=== PATIENT | male | born 1985 | race Caucasian/White ===

== ENCOUNTER 2022-02-20 14:50 | Inpatient (IN) | payer MEDICAID, SELFPAY ==
[2022-02-20 14:51] VITALS: BP 133/89; PULSE 87; RESP 14; TEMP 37.2; O2SAT 100; BMI 22.1
--- NOTE | 2022-02-20 15:06 | CM.ED ---
SW received call from patient's mother inquiring about the RAMP program. SW provided mother with information about the RAMP program. SW Note SW met with patient and his father in law. Patient gave verbal consent to speak to him in the presence of the his father in law. Patient reprots he is almost through with my alcohol detox as his last drink 2 days ago. Patient reported he drank almost 2 L of vodka and 1 can of beer the last time I drank. Patient said that he doesn't have any of the symptoms of Suboxone detox. Patient said that he last used Suboxone yesterday and when magazine writer asked if he had been prescribed detox patient said it was. SW asked if patient had bought the Suboxone and patient said the last few off the street. SW explained RAMP program including rules that include no outside visitors, no outside food, no phone calls and belongings locked. Patient verbalized understanding. RN said that patient need excuse for upcoming court hearing. SW advised RN to give a work excuse stating he was seen at [facility] but his discharge date is undetermined. Lisa ROSADO
--- NOTE | 2022-02-20 15:10 | EDS_ITS ---
HPI History of Present Illness Chief Complaint: ETOH Intox Informant: patient Onset/Context/Timing Onset: Yesterday Context: Gradual Onset Timing: Continuous Worsened by: Nothing Relieved by: Nothing Associated Symptoms Associated Symptoms: Negative for vomiting*, diarrhea*, fever*, rash*, seizure, tremor, palpatations, change in mental status, trauma, suicidal ideation or homicidal ideation Narrative Narrative: Patient presents requesting detox from Suboxone and alcohol. Patient states he drinks a liter of vodka per day. Patient states his last drink was 2 days ago. Patient states that he takes 1-1/2 to 2 tablets of Suboxone daily. Patient states his last dose of Suboxone was yesterday. Patient states he has been using for 6 years. Patient denies any prior detox. Patient denies any suicidal homicidal ideations. Patient denies any nausea or vomiting. Patient admits to some subjective chills. PFSH PFSH Medical History no medical history no medical history Allergy/AdvReac Type Severity Reaction Status Date / Time No Known Allergies Allergy Verified 02/20/22 14:51 Surgical History no surgical history no surgical history Social History (Updated 02/20/22 @ 15:[address] Vince Morris, DO) Smoking Status: Current every day smoker tobacco type: cigarettes alcohol intake: current alcohol intake frequency: 3 or more drinks per day Alcohol type: hard liquor substance use type: other details: Suboxone ROS ROS ED Constitutional Constitutional ED: Reports chills and subjective; Denies fever(s) Eyes Eyes: Denies blurry vision or change in vision ENT ENT ED: Denies rhinorrhea or sore throat Cardiovascular Cardiovascular: Denies chest pain or palpitations Respiratory/Chest Respiratory/Chest: Denies cough or dyspnea Gastrointestinal Gastrointestinal: Denies nausea or vomiting Genitourinary Genitourinary ED: Denies dysuria or hematuria Musculoskeletal Musculoskeletal: Reports back pain; Denies neck pain Integumentary Denies abscess or rash Neurologic Neurologic: Denies headache(s) or weakness Psychiatric Psychiatric: Denies suicidal ideation or suicidal thoughts Allergic/Immunologic Allergic/Immunologic ED: Denies mouth swelling or urticaria EXAM Physical Exam Const Vital Signs: 02/20/22 14:51 Temperature 99 F Temperature Source Temporal Pulse Rate 87 Respiratory Rate 14 Blood Pressure 133/89 H Blood Pressure Mean 103 Pulse Ox 100 Oxygen Delivery Method Room Air Positive well nourished and well developed General Appearance ED: well developed and NAD HEENT Reports moist mucous membranes Neck supple and no JVD Resp normal respiratory effort and clear to auscultation bilaterally Cardio regular rate, regular rhythm and no murmurs GI normal to inspection, nondistended, normoactive bowel sounds and non-tender Palpation: soft Extremity normal to inspection General Extremety ED: Negative for edema or tenderness General Extremity: Negative for edema Neuro oriented x3, CN's II-XII intact bilaterally and no sensory deficits noted Sensorium / Orientation: alert Motor Exam: strength 5/5 throughout Psych mental status grossly normal Skin no rashes or lesions noted MDM MDM MDM Narrative Medical decision making narrative: Basic labs were obtained. Case was discussed with the hospitalist. He will admit the patient to his service. Patient understood and was agreeable with the plan. All questions were answered. Lab Data Labs: Laboratory Results - last 24 hr 02/20/22 02/20/22 15:30 15:30 WBC 7.3 RBC 3.83 L Hgb 13.7 Hct 40.8 MCV 106.5 H MCH 35.8 H MCHC 33.6 RDW Std Deviation 63.4 H RDW Coeff of Sherry 15.9 H Plt Count 192 MPV 10.9 Immature Gran % (Auto) 0.500 Neut % (Auto) 70.3 H Lymph % (Auto) 14.7 L [place] % (Auto) 11.1 H Eos % (Auto) 2.7 Baso % (Auto) 0.7 Absolute Neuts (auto) 5.2 Absolute Lymphs (auto) 1.08 Nucleated RBC % 0 Ur Drug Screen Comment Discharge Plan Triage Chief Complaint: ETOH Intox ED Provider: Vince Morris Dx/Rx/DC Orders Clinical Impression: Opiate withdrawal, Alcohol withdrawal, Substance abuse Primary Care Provider: Care Physician,No Primary Referrals: Care Physician,No Primary [Primary Care Provider] - Disposition Disposition: Acute Care [facility]
--- NOTE | 2022-02-20 15:36 | NURSING ---
pt refused IV placement stating I don't need saline or nothing like that This nurse attempted to educate pt on use of IV need for inpatient use. pt refused. pt allowed straight stick for blood work collection. updated.
[2022-02-20 15:43] LABS: Absolute Lymphocyte Count 1.08 X10^3/uL (0.83-4.51); Absolute Neutrophil Count 5.2 X10^3/uL (2.0-7.7); Basophil# 0.05 X10^3/uL; Basophil% 0.7 % (0-1); Eosinophils% 2.7 % (0-5); Hematocrit 40.8 % (40-54); Hemoglobin 13.7 g/dL (13.0-16.5); Lymphocyte # 1.08 X10^3/ul (0.83-4.51); Lymphocyte % 14.7 % (19-41); Mean Corp Hgb Conc 33.6 g/dL (32-36); Mean Corpuscular Hgb 35.8 pg (27.0-32.0); Mean Corpuscular Volume 106.5 fL (80-94); Mean Platelet Vol. 10.9 fl (6.2-12.0); Monocyte# 0.81 X10^3/uL; Monocyte% 11.1 % (0-10); NRBC Flagged by Analyzer 0 % (0-5); Neutrophil # 5.15 X10^3/uL (2.7-7.7); Neutrophil % 70.3 % (47-70); Platelet Count 192 K/mm3 (150-450); RBC Distribution Width CV 15.9 % (11.6-14.6); RBC Distribution Width SD 63.4 fl (35.1-43.9); Red Blood Count 3.83 M/mm3 (4.6-6.2); White Blood Count 7.3 K/mm3 (4.4-11.0)
--- NOTE | 2022-02-20 16:00 | NURSING ---
MED SURG JOARASH ALCOHOL AND OPIATE WITHDRAWAL
[2022-02-20 16:02] LABS: ALB/GLOB Ratio 0.7 RATIO (0.9-2.4); AST(SGOT) 196 U/L (15-37); Alanine Aminotransfer ALT/SGPT 88 U/L (16-61); Albumin, Serum 3.5 g/dL (3.2-5.0); Alkaline Phosphatase 189 U/L (45-117); Anion Gap 8 (5-15); BUN 11 mg/dL (7-18); BUN/Creat Ratio 15.4 RATIO (10-20); Calcium,Total 9.6 mg/dL (8.5-10.1); Chloride 99 mmol/L (98-107); Creatinine, Serum 0.72 mg/dL (0.70-1.30); EST Glomerular Filtration Rate 131 mL/min (>60); Est Glom Filt Rate - Afr Amer 159 mL/min (>60); Estimated Creatinine Clearance 136.42 ml/min; Globulin 5.2 g/dL (2.2-4.2); Glucose 90 mg/dL (74-106); Potassium 3.9 mmol/L (3.5-5.1); Protein, Total 8.7 g/dL (6.4-8.2); Sodium Level 134 mmol/L (136-145)
[2022-02-20 16:06] LABS: Amphetamine Urine VISTA NEGATIVE (<1000 ng/mL); Barbiturate Urine VISTA NEGATIVE (< 200 ng/mL); Benzodiazepine Urine VISTA NEGATIVE (< 200 ng/mL); Cocaine Urine VISTA NEGATIVE (< 300 ng/mL); Ecstacy Urine VISTA NEGATIVE (< 500 ng/mL); Methadone Urine VISTA NEGATIVE (< 300 ng/mL); PCP Urine VISTA NEGATIVE (< 25 ng/mL); THC Urine VISTA NEGATIVE (< 50 ng/mL); Vista UDS pH Range 6
--- NOTE | 2022-02-20 16:22 | PCM.HP.STD ---
HPI - General General Date of Service: 02/20/22 Chief Complaint: Opiate and alcohol withdrawal HPI Narrative TOÑO LORD, is a 36 M who presents seeking treatment for opiate and alcohol withdrawal. Patient drinks 2 bottles of vodka per day. Last drink was about 2 days ago. Patient has a slight tremor but he states that he normally has a slight tremor. Denies any other acute symptoms at this time. He also uses Suboxone from the street and has been taking 1 twice a day for a while and now is down to about a quarter tab every other day. Last consumption was yesterday. Is currently having no symptoms from opiate withdrawal at this time. Patient is interested in getting therapy and treatment for his withdrawal, however, he does not want to take phenobarbital or buprenorphine at this time [facility] Medical History Alcoholism Substance abuse Medical History no medical history Allergy/AdvReac Type Severity Reaction Status Date / Time No Known Allergies Allergy Verified 02/20/22 14:51 Family History Other Alcoholism Surgical History no surgical history Social History Smoking Status: Current every day smoker tobacco type: cigarettes alcohol intake: current alcohol intake frequency: 3 or more drinks per day Alcohol type: hard liquor substance use type: other details: Suboxone ROS ROS Narrative All review of systems were negative except as mentioned above in the history of present illness and the other review of systems. Vital Signs Vital Signs Vital Signs: 02/20/22 14:51 Temperature 37.2 C Temperature Source Temporal Pulse Rate 87 Respiratory Rate 14 Blood Pressure 133/89 H Blood Pressure Mean 103 Pulse Ox 100 Oxygen Delivery Method Room Air Weight Weight: 68 kg Body Mass Index (BMI) 22.1 Physical Exam Const alert and no apparent distress HEENT normocephalic, head/scalp atraumatic, hearing grossly normal bilaterally and moist oral mucous membranes Resp normal respiratory effort, no retractions, no use of accessory muscles and clear to auscultation bilaterally Cardio regular rate, regular rhythm, S1 normal heart sound and S2 normal heart sound GI normal to inspection, nondistended, normoactive bowel sounds, soft to palpation, non-tender, non-distended and hepatosplenomegaly Extremity normal to inspection Neuro oriented x3 Results Lab / Micro Data Result Diagrams: 02/20/22 15:30 02/20/22 15:30 Labs: Laboratory Results - last 24 hr 02/20/22 15:30: WBC 7.3, RBC 3.83 L, Hgb 13.7, Hct 40.8, MCV 106.5 H, MCH 35.8 H, MCHC 33.6, RDW Std Deviation 63.4 H, RDW Coeff of Sherry 15.9 H, Plt Count 192, MPV 10.9, Immature Gran % (Auto) 0.500, Neut % (Auto) 70.3 H, Lymph % (Auto) 14.7 L, [place] % (Auto) 11.1 H, Eos % (Auto) 2.7, Baso % (Auto) 0.7, Absolute Neuts (auto) 5.2, Absolute Lymphs (auto) 1.08, Nucleated RBC % 0 02/20/22 15:30: Sodium 134 L, Potassium 3.9, Chloride 99, Carbon Dioxide 27.0, Anion Gap 8, BUN 11, Creatinine 0.72, Estim Creat Clear Calc 136.42, Est GFR (MDRD) Af Amer 159, Est GFR (MDRD) Non-Af 131, BUN/Creatinine Ratio 15.4, Glucose 90, Calcium 9.6, Total Bilirubin 0.60, AST 196 H, ALT 88 H, Alkaline Phosphatase 189 H, Total Protein 8.7 H, Albumin 3.5, Globulin 5.2 H, Albumin/Globulin Ratio 0.7 L 02/20/22 15:30: Ethyl Alcohol 7.0 02/20/22 15:30: Urine Opiates Screen NEGATIVE, Urine Methadone Screen NEGATIVE, Ur Barbiturates Screen NEGATIVE, Ur Phencyclidine Scrn NEGATIVE, Ur Amphetamines Screen NEGATIVE, MDMA (Ecstasy) Screen NEGATIVE, U Benzodiazepines Scrn NEGATIVE, Urine Cocaine Screen NEGATIVE, U Cannabinoids Screen NEGATIVE, Ur Drug Screen Comment Assessment & Plan Assessment/Plan (1) Opiate withdrawal: PLAN: Last use of Suboxone was 2 days ago. Patient was using quarter tabs. Patient declining any buprenorphine at this time. Patient be treated for somatic complaints at this time and to have addiction medicine see him to establish a program for discharge. Patient may alert us to his need for medication if his symptoms do get worse but he does not want to have any treatment at this time. (2) Alcohol withdrawal: PLAN: Patient last drink was about 2 days ago and currently he is stable. He does not want to be placed on a phenobarbital taper at this time. Supportive management. Addiction medicine to see in to facilitate outpatient program. PLAN: Plan VTE prophylaxis: Not indicated as patient is low risk. Charges/Coding Visit Charges Inpatient E&M: 73926 Init Hosp L2
[2022-02-20 16:51] VITALS: BMI 21.4
[2022-02-20 16:58] VITALS: BP 140/76; PULSE 86; RESP 18; TEMP 36.7; O2SAT 97
[2022-02-20 17:04] LABS: Mucous, Urine 0 SEEN /hpf (<or=2+); Squamous Epithelial Cells - UA 0 SEEN /hpf (0-5)
[2022-02-20 17:08] LABS: Color, Urine Yellow (Yellow); Glucose, Dipstick Normal (Normal); Ketone-Dipstick 5 mg/dl (Negative); Leukocyte Esterase-Dipstick 25 /ul (Negative); Nitrite-Dipstick Negative (Negative); Occult Blood-Urine Negative /ul (Negative); Protein-Dipstick 15 mg/dl (Negative); Specific Gravity, Urine 1.015 (1.002-1.030); Urine Bilirubin Dipstick Negative (Negative); Urine Clarity Clear (Clear); Urine Urobilinogen 1 mg/dl (Normal)
[2022-02-20 17:17] LABS: Bacteria RARE /hpf (None Seen); Red Blood Cells-Urine 0 SEEN /hpf (0-5); White Blood Cells 0-5 SEEN /hpf (0-5)
[2022-02-20 17:35] VITALS: BP 125/79; PULSE 99; RESP 18; TEMP 36.8; O2SAT 99
--- NOTE | 2022-02-20 20:20 | PCM.HOSP.N ---
Hospitalist Note Patient refusing Subutex and phenobarbital as patient states that he wants to withdrawal naturally. Explained the risks of withdrawing from alcohol without proper medication including seizures. Patient verbalized understanding states that he will continue to refuse medications and is also refusing an IV line. Educated patient that if patient does start to experience seizure activity due to alcohol withdrawal that his treatment with Ativan may be delayed since he is refusing an IV line as well. Patient verbalized understanding and states he does not want anything done at this time just nicotine gum for his tobacco withdrawal.
[2022-02-20] MEDS: Nicotine Polacrilex 2 MG GUM PO ×2 (20:30→23:42)
[2022-02-20 21:43] VITALS: BP 126/83; PULSE 88; RESP 18; TEMP 36.8; O2SAT 99
[2022-02-20] MEDS: traZODone 100 MG Tablet PO (23:42)
[2022-02-21 07:04] VITALS: BP 107/75; PULSE 70; RESP 16; TEMP 36.5; O2SAT 98
[2022-02-21 08:32] VITALS: BP 105/71; PULSE 66; RESP 18; TEMP 36.8; O2SAT 99
[2022-02-21] MEDS: Nicotine Polacrilex 2 MG GUM PO ×4 (08:40→22:28)
--- NOTE | 2022-02-21 10:14 | PN.HOSP_ITS ---
Subjective Subjective Doing well, denies any significant withdrawal symptoms. Still refusing medications Objective Data Objective Data Vital Signs: Vital Signs Temp Pulse Resp BP Pulse Ox O2 Del Method 98.2 F 66 18 105/71 99 Room Air 02/21/22 08:32 02/21/22 08:32 02/21/22 08:32 02/21/22 08:32 02/21/22 08:32 02/21/22 08:47 Oxygen Delivery Method Room Air Weight: 145 lb 6.4 oz Body Mass Index (BMI) 21.4 Intake & Output: Intake and Output for Last 24 Hours 02/20/22 02/21/22 02/22/22 03:59 03:59 03:59 Intake Total 800 / 800 Balance 800 / 800 Lab / Micro Data Result Diagrams: 02/20/22 15:30 02/20/22 15:30 Labs: Laboratory Results - last 24 hr 02/20/22 15:20: Urine Color Yellow, Urine Clarity Clear, Urine pH 7.0, Ur Specific [place] 1.015, Urine Protein 15 H, Urine Glucose (UA) Normal, Urine Ket ones 5 H, Urine Occult Blood Negative, Urine Nitrite Negative, Urine Bilirubin Negative, Urine Urobilinogen 1 H, Ur Leukocyte Esterase 25 H, Urine RBC 0 SEEN, Urine WBC 0-5 SEEN, Ur Squamous Epith Cells 0 SEEN, Urine Bacteria RARE, Urine Mucus 0 SEEN 02/20/22 15:30: WBC 7.3, RBC 3.83 L, Hgb 13.7, Hct 40.8, MCV 106.5 H, MCH 35.8 H , MCHC 33.6, RDW Std Deviation 63.4 H, RDW Coeff of Sherry 15.9 H, Plt Count 192, MPV 10.9, Immature Gran % (Auto) 0.500, Neut % (Auto) 70.3 H, Lymph % (Auto) 14.7 L, [place] % (Auto) 11.1 H, Eos % (Auto) 2.7, Baso % (Auto) 0.7, Absolute Neuts (auto) 5.2, Absolute Lymphs (auto) 1.08, Nucleated RBC % 0 02/20/22 15:30: Sodium 134 L, Potassium 3.9, Chloride 99, Carbon Dioxide 27.0, Anion Gap 8, BUN 11, Creatinine 0.72, Estim Creat Clear Calc 136.42, Est GFR (MDRD) Af Amer 159, Est GFR (MDRD) Non-Af 131, BUN/Creatinine Ratio 15.4, Glucose 90, Calcium 9.6, Total Bilirubin 0.60, AST 196 H, ALT 88 H, Alkaline Phosphatase 189 H, Total Protein 8.7 H, Albumin 3.5, Globulin 5.2 H, Albumin/Globulin Ratio 0.7 L 02/20/22 15:30: Ethyl Alcohol 7.0 02/20/22 15:30: Urine Opiates Screen NEGATIVE, Urine Methadone Screen NEGATIVE, Ur Barbiturates Screen NEGATIVE, Ur Phencyclidine Scrn NEGATIVE, Ur Amphetamines Screen NEGATIVE, MDMA (Ecstasy) Screen NEGATIVE, U Benzodiazepines Scrn NEGATI VE, Urine Cocaine Screen NEGATIVE, U Cannabinoids Screen NEGATIVE, Ur Drug Screen Comment Physical Exam Narrative General: Alert, Oriented x3, Cooperative, No apparent distress HEENT: Atraumatic, PERRLA, EOMI, Normocephalic Oral: Moist Mucosa Neck: Supple, No JVD Lungs: Clear to auscultation, Normal air movement, No rhonchi, No wheeze, No rales Cardiovascular: Regular rate, Regular Rhythm, Normal S1, Normal S2, No murmurs Abdomen: Soft, Non Tender, Non-Distended, No Hepato-splenomegaly Extremities: No edema, Capillary Refill Less than 3 Seconds Skin: No rashes, No breakdown Musculoskeletal: No Tenderness to Palpation of Joints or Extremities Neurological: Cranial nerves II-XII grossly intact, Motor Exam 5/5 strength throughout, Sensory exam intact to light touch and pain Psych/Mental Status: Normal Affect, Appropriate Assessment & Plan Assessment/Plan (1) Opiate withdrawal: (2) Alcohol withdrawal: PLAN: Plan 1. Acute opiate and alcohol withdrawal ? He is refusing the medications and the alcohol and opiate withdrawal protocol as he wants to do this naturally ? We will have him follow-up with 180 when he is ready for discharge ? We will continue with symptomatic treatment but he does not want to bu prenorphine taper or a phenobarb taper DVT: Ambulation Charges/Coding Visit Charges Inpatient E&M: 78606 Subs Hosp L2
[2022-02-21 14:00] VITALS: BP 118/77; PULSE 68; RESP 18; TEMP 36.6; O2SAT 99
[2022-02-21 20:20] VITALS: BP 131/89; PULSE 74; RESP 18; TEMP 36.8; O2SAT 98
[2022-02-21] MEDS: traZODone 100 MG Tablet PO (23:45)
[2022-02-22] MEDS: Nicotine Polacrilex 2 MG GUM PO ×2 (09:16→12:01)
--- NOTE | 2022-02-22 10:26 | ADDICTION ---
This music writer met with PT to conduct ASAM, MSE, AUDIT assessments and to plan for d/c. PT A+Ox4 and participated actively. All assessments completed, faxed to [facility] and placed in PT's chart. PT plans to f/u with [facility] for residential treatment services. [facility] will provide transportation post d/c from [facility].
--- NOTE | 2022-02-22 10:54 | DCINST_ITS ---
Discharge Instructions Diet Discharge Diet: No restrictions Follow Up Care Test Results: Test results from this visit will be discussed in further detail at your follow- up appointment, if applicable. Discharge Plan Admission Admit Date/Time: 02/20/22 16:21 Attending Provider: Manuel Veloz Primary Care Provider: Care Physician,No Primary Consulting Providers: Vince Paulino Discharge Orders/Prescriptions Prescriptions: No Action NK Referrals / Follow Up: Care Physician,No Primary [Primary Care Provider] - Disposition Disposition (needs filled in before D/C Order can be placed): Home, Self Care
--- NOTE | 2022-02-22 10:55 | DS.PCM_ITS ---
Providers Date of Admission: 02/20/22 Primary Care Physician: No Primary Care Phys Reason For Visit: OPIATE AND ALCOHOL WITHDRAWAL Diagnosis Discharge Diagnosis (1) Opiate withdrawal: Status: Acute Code(s): F11.93 - Opioid use, unspecified with withdrawal (2) Alcohol withdrawal: Status: Acute Code(s): F10.939 - Alcohol use, unspecified with withdrawal, unspecified Plan 1. Acute opiate and alcohol withdrawal ? He is refusing the medications and the alcohol and opiate withdrawal protocol as he wants to do this naturally ? We will have him follow-up with 180 when he is ready for discharge ? We will continue with symptomatic treatment but he does not want to buprenorphine taper or a phenobarb taper DVT: Ambulation Medications at Discharge Home Medications NK 02/20/22 Hospital Course Operations None Procedures None Summary of Care Provided Minutes Spent on Discharge: 36 Hospital Course: Per HPI: TOÑO LORD, is a 36 M who presents seeking treatment for opiate and alcohol withdrawal.? Patient drinks 2 bottles of vodka per day.? Last drink was about 2 days ago.? Patient has a slight tremor but he states that he normally has a slight tremor.? Denies any other acute symptoms at this time.? He also uses Suboxone from the street and has been taking 1 twice a day for a while and now is down to about a quarter tab every other day.? Last consumption was yesterday.? Is currently having no symptoms from opiate withdrawal at this time.? Patient is interested in getting therapy and treatment for his withdrawal, however, he does not want to take phenobarbital or buprenorphine at this time Hospital Course: 1. Acute opiate and alcohol withdrawal?36-year-old male present to the hospital with acute opiate and alcohol withdrawal requesting detox. He did not want any of the typical protocol, he did not want any of the buprenorphine or phenobarb ital for tapering. Is been about 4 days since his last alcoholic beverage so 180 did talk to him about going into inpatient rehab today and he agreed. We will plan for discharge this afternoon. I discussed with him the plan for discharge today he expressed understanding of the risk and benefits of going and would like to go today. Physical Exam Narrative General: Alert, Oriented x3, Cooperative, No apparent distress HEENT: Atraumatic, PERRLA, EOMI, Normocephalic Oral: Moist Mucosa Neck: Supple, No JVD Lungs: Clear to auscultation, Normal air movement, No rhonchi, No wheeze, No rales Cardiovascular: Regular rate, Regular Rhythm, Normal S1, Normal S2, No murmurs Abdomen: Soft, Non Tender, Non-Distended, No Hepato-splenomegaly Extremities: No edema, Capillary Refill Less than 3 Seconds Skin: No rashes, No breakdown Musculoskeletal: No Tenderness to Palpation of Joints or Extremities Neurological: Cranial nerves II-XII grossly intact, Motor Exam 5/5 strength throughout, Sensory exam intact to light touch and pain Psych/Mental Status: Normal Affect, Appropriate Weight / BMI Weight Weight: 145 lb 8.081 oz Body Mass Index (BMI) 21.4 ABG / Lab / Microbiology Data Result Diagrams: 02/20/22 15:30 02/20/22 15:30 D/C Instructions Discharge Diet: No restrictions Meaningful Use Info Meaningful Use Diagnoses (Choose all that apply): None applicable Discharge Plan Admission Admit Date/Time: 02/20/22 16:21 Attending Provider: Manuel Veloz Primary Care Provider: Care Physician,No Primary Consulting Providers: Vince Paulino Discharge Orders/Prescriptions Prescriptions: No Action NK Referrals / Follow Up: Care Physician,No Primary [Primary Care Provider] - Disposition Disposition (needs filled in before D/C Order can be placed): Home, Self Care Charges/Coding Visit Charges Inpatient E&M: 37973 Disch Hosp
--- NOTE | 2022-02-22 12:31 | NURSING ---
Laura from [facility] updated on physicians response. states it was information from [employer] they were waiting on. asked when pt was scheduled to be discharged, informed discharge is in the computer. states she will talk with her infrastructure manager and call us back.
[2022-02-22 12:43] VITALS: BP 117/70; PULSE 82; RESP 18; TEMP 36.8; O2SAT 96
== END 2022-02-22 13:21 | disposition home or self-care (01) | DRG 773 ==
LOC: ED 15:58 → MS3 16:32
PROVIDERS: Emergency Provider Emergency Medicine; Visit Provider Family Medicine
DX: F11.23 Opioid dependence with withdrawal (principal); F10.239 Alcohol dependence with withdrawal, unspecified; F17.210 Nicotine dependence, cigarettes, uncomplicated; Y90.9 Presence of alcohol in blood, level not specified
CPT/HCPCS: 80053; 80307; 81001; 82077; 85025; 97802; 99283